=== PATIENT | female | born 1980 | race Caucasian/White ===

== ENCOUNTER 2018-04-28 09:47 | Day surgery (SDC) | payer OTHER ==
[~2018-04-28 09:47] MED LIST: Lactated Ringers 1,000 ML IV SCH; Sodium Chloride 0.9% 10 ML Syringe FLUSH PRN
--- NOTE | 2018-04-28 10:57 | PCM.HPR ---
H & P Addendum review - H & P Addendum Review Date of Original H & P: 04/04/18 Date Reviewed: 04/28/18 Time Reviewed: 10:57 Patient was Examined: No Changes
[2018-04-28] MEDS ORDERED: fentaNYL 100 MCG/2 ML SDV ONE ×2 (11:00→11:07)
[2018-04-28] MEDS ORDERED: Midazolam 1 MG/ML 2 ML SDV ONE ×2 (11:00→11:07)
[2018-04-28] MEDS ORDERED: Propofol 200 MG/20 ML SDV ONE ×2 (11:00→11:07)
--- NOTE | 2018-04-28 11:34 | PCM.OPNOTE ---
- General Post-Op/Procedure Note Date of Surgery/Procedure: 04/28/18 Operative Procedure(s): Colonoscopy with bx's Findings: Normal Pre Op Diagnosis: Chronic Diarrhea Post-Op Diagnosis: Same Anesthesia Technique: MAC Primary Surgeon: Nelson Edwards Anesthesia Provider: Nilda Marie EBCrispin in mLs: 0 Complications: None Condition: Good Free Text/Narrative:: Intake & Output 04/27/18 04/28/18 04/28/18 22:59 06:59 14:59 Intake Total 400 Balance 400
--- NOTE | 2018-04-29 08:01 | OR ---
Date of Procedure: 04/28/2018 PREOPERATIVE DIAGNOSIS: Chronic diarrhea. POSTOPERATIVE DIAGNOSIS: Normal colonoscopy. PROCEDURE: Colonoscopy with biopsy. ANESTHESIA: IV sedation. PROCEDURE IN DETAIL: The patient was brought to the procedure room where she was placed on her left side, and IV sedation administered. Digital rectal exam was performed which was normal. Colonoscope was inserted and advanced to the level of the cecum without difficulty. Cecal position was confirmed by identifying the appendiceal lumen and the ileocecal valve. Prep was good, and surfaces were well visualized. Upon withdrawing the scope, all segments of the colon and rectum appeared normal. I did not see any evidence of colitis or other abnormalities. I did take biopsies from all segments of the colon and rectum for pathology review. Air was removed, and the scope was withdrawn. The patient tolerated the procedure well and returned to recovery in stable condition. The patient will follow up with Luz Elena Sow PA-C, in 1 week for review of biopsies. HUMBERTO HARGROVE MD /[id number]
== END 2018-04-28 12:40 | disposition home or self-care (01) ==
LOC: LL.SDS 09:47
PROVIDERS: ATTEND Surgery
DX: K52.9 Noninfective gastroenteritis and colitis, unspecified (principal); G25.81 Restless legs syndrome; F32.9 Major depressive disorder, single episode, unspecified; G62.9 Polyneuropathy, unspecified; Z79.899 Other long term (current) drug therapy; Z88.2 Allergy status to sulfonamides
CPT/HCPCS: 45380; 81025; J2250; J2704; J3010; J7120

== ENCOUNTER → 2019-06-29 | Outpatient (CLI) | payer OTHER | LOC: LL.DI 12:01 | PROVIDERS: ATTEND Physician Assistant | DX: J18.9 Pneumonia, unspecified organism (principal); R91.1 Solitary pulmonary nodule; Z98.890 Other specified postprocedural states | CPT/HCPCS: 36415; 71046; 85025; 86140 ==